=== PATIENT | female | born 1955 | race Caucasian/White ===

== ENCOUNTER → 2021-07-11 10:20 | Outpatient (CLI) | payer MEDICARE, SELFPAY ==
--- NOTE | ~2021-07-11 | XR_ITS ---
EXAMINATION:XR cervical spine 4-5V DATE: 07/11/2021 10:59 INDICATION: Left ulnar neuropathy TECHNIQUE: AP, lateral, lateral swimmers and odontoid views of the cervical spine are provided. COMPARISON: 04/02/2010 FINDINGS: There are 3 mm of stable anterolisthesis of C3 on C4. There are 2 mm of retrolisthesis of C 5 on C6 and 3 mm of anterolisthesis of C7 on T1. The odontoid is intact. No fracture is identified. T here is fusion of C2 and C3 and severe loss of intervertebral disc space height at C4-5, C5-6, and C6 -7. The vertebral body heights are maintained. Prevertebral soft tissues are normal. There is moderat e multilevel facet and uncovertebral joint osteoarthritis. IMPRESSION: 1. Severe cervical spondylosis with interval worsening. Reviewed, dictated and finalized at location F.
== END ==
PROVIDERS: PCP Hospitalist; Visit Provider Hospitalist
DX: G56.22 Lesion of ulnar nerve, left upper limb (principal); M47.812 Spondylosis without myelopathy or radiculopathy, cervical region
CPT/HCPCS: 72050